=== PATIENT | male | born 1975 | race Caucasian/White ===

== ENCOUNTER 2021-04-30 05:10 | Emergency (ER) | payer OTHER ==
[~2021-04-30] VITALS: Ht 177.8 cm; Wt 77.1 kg
[2021-04-30 05:16] VITALS: BP 153/107
--- NOTE | 2021-04-30 05:24 | NUR ---
Wheel chair to bed 12 and change a gown.
--- NOTE | 2021-04-30 05:43 | NUR ---
ER MD BEDSIDE WITH MALE CHAPPERONE FOR EVAL
[2021-04-30] MEDS ORDERED: PHEN51CR12 RC (05:45)
--- NOTE | 2021-04-30 05:54 | NUR ---
PATIENT CLEARED FOR DISHCARGE AT THIS TIME. ADVISED TO FOLLOW UP WITH PCP AND RETURN IF CONDITION WORSENS. NO OTHER COMPLAINTSS OR CONECRNS AT THIS TIME FOLLWOING DISHCRGE TEACHING.
[2021-04-30 05:58] VITALS: BP 147/81
== END 2021-04-30 05:54 | disposition home or self-care (01) ==
LOC: MED 05:10
DX: K60.2 Anal fissure, unspecified (principal); K64.9 Unspecified hemorrhoids; Z79.899 Other long term (current) drug therapy
CPT/HCPCS: 99281